=== PATIENT | male | born 1980 | race Hispanic/Latino ===

== ENCOUNTER 2019-12-14 14:23 | Outpatient (CLI) | payer OTHER ==
--- NOTE | 2019-12-14 15:33 | ULT ---
BILATERAL TESTICULAR ULTRASOUND WITH [place] SCALE AND COLOR FLOW AND SPECTRAL DOPPLER IMAGING: Date: 12/14/2019 HISTORY: 39-year-old male with left testicular swelling and pain. FINDINGS: The right testis measures 2.4 x 3.4 x 2.1 cm. The left testis measures 4.6 x 5.3 x 2.7 cm. Multiple h ypoechoic masses are seen within the left testicle. Flow is demonstrated to both testes. Large left-s ided hydrocele. Right epididymis is normal. There is heterogeneity in the left epididymis. IMPRESSION: 1. Left testicular masses suspicious for malignancy. 2. Large left hydrocele. 3. Heterogeneity in the left epididymis is also suspicious for malignancy. Urologic consultation is recommended. CODE T. POS: OFF
== END 2019-12-14 14:24 | disposition home or self-care (01) ==
LOC: BICULT 14:23
PROVIDERS: ATTEND Family Medicine
DX: N50.812 Left testicular pain (principal); N43.3 Hydrocele, unspecified; R93.49 Abnormal radiologic findings on diagnostic imaging of other urinary organs; N50.89 Other specified disorders of the male genital organs
CPT/HCPCS: 76870; 93976

== ENCOUNTER 2020-01-28 07:27 | Outpatient (CLI) | payer OTHER ==
--- NOTE | 2020-01-28 09:55 | CT ---
ABDOMEN AND PELVIC CT SCAN WITH IV CONTRAST: HISTORY: History of inguinal hernia. Left testicular swelling for several months. COMPARISON: Scrotal ultrasound 12/14/2019. FINDINGS: The lung bases are clear. The visualized liver, gallbladder, pancreas, spleen, and adrenal glands ar e unremarkable. No renal calculus or acute obstruction. No CT evidence for acute appendicitis. No large or small bowel obstruction. No evidence for abnormal fluid collection. There are some bila teral small paraaortic lymph nodes without overt adenopathy by size criteria. Bony structures appear intact. There is a huge left-sided hydrocele overall measuring 8 x 15 cm in size. The left-sided t estis appears to be somewhat enlarged and heterogeneous consistent with findings on the prior testicu lar ultrasound. There is no evidence for bowel or fat-containing inguinal hernia. Small fat-contain ing umbilical hernia. IMPRESSION: Huge left-sided hydrocele with somewhat heterogeneous minimally enlarged testis. No evidence for bow el or fat-containing inguinal hernia. Small fat-containing umbilical hernia. Scattered small retrop eritoneal lymph nodes without evidence for overt adenopathy. POS: [facility]
== END 2020-01-28 07:28 | disposition home or self-care (01) ==
LOC: BICCT 07:27
PROVIDERS: ATTEND Urology
DX: K40.90 Unilateral inguinal hernia, without obstruction or gangrene, not specified as recurrent (principal); N43.3 Hydrocele, unspecified; K42.9 Umbilical hernia without obstruction or gangrene; N50.89 Other specified disorders of the male genital organs
CPT/HCPCS: 74177

== ENCOUNTER 2020-03-24 08:36 | Outpatient (CLI) | payer OTHER ==
--- NOTE | 2020-03-24 08:54 | RAD ---
EXAM: Chest PA and lateral: HISTORY: Neoplasm of uncertain behavior. COMPARISON: None FINDINGS: Heart: Normal cardiac silhouette Aorta: Unremarkable Pulmonary vessels: Normal Costophrenic angles: Costophrenic angles are clear. Lungs: No consolidation or masses. Pneumothorax: No pneumothorax Osseous structures: No osseous abnormalities IMPRESSION: No acute cardiopulmonary process.
== END 2020-03-24 08:37 | disposition home or self-care (01) ==
LOC: RAD 08:36
PROVIDERS: ATTEND Urology
DX: D40.12 Neoplasm of uncertain behavior of left testis (principal)
CPT/HCPCS: 71046

== ENCOUNTER 2024-05-24 20:39 | Inpatient (IN) | payer MEDICAID, SELFPAY ==
[2024-05-24] MEDS ORDERED: Sodium Chloride 0.9% 100 ML ONE (22:24)
[2024-05-24] MEDS ORDERED: Cefepime 2 GM VIAL ONE (22:24)
[2024-05-24 22:44] LABS: Hematocrit 18.9 % (42.0-52.0); Hemoglobin 5.6 g/dL (14.0-18.0); Mean Corpuscular HGB CONC 29.6 g/dL (32.0-36.0); Mean Corpuscular Hemoglobin 25.8 pg (27.0-31.0); Mean Corpuscular Volume 87.1 fL (78.0-98.0); Mean Platelet Volume 11.3 fL (7.4-10.4); Platelet Count 27 10x3/uL (130-400); RBC Distribution Width 22.6 % (11.5-14.5); Red Blood Cell (RBC) Count 2.17 mill/uL (4.70-6.10)
[2024-05-24 22:46] LABS: ALT (SGPT) 7 U/L (8-55); AST (SGOT) 11 U/L (5-34); Albumin 2.3 g/dL (3.5-5.0); Alkaline Phosphatase 68 U/L (40-110); Anion Gap 15 mmol/L (10-20); BUN (Urea Nitrogen) 27 mg/dL (8.9-20.6); Bilirubin, Total 0.9 mg/dL (0.2-1.2); Calc. Creatinine Clearance 0 mL/min (70-130); Calcium 8.1 mg/dL (7.8-10.44); Carbon Dioxide 19 mmol/L (22-29); Chloride 103 mmol/L (98-107); Estimated GFR 114; Glucose 109 mg/dL (70-105); Magnesium 2.2 mg/dL (1.6-2.6); Potassium 4.6 mmol/L (3.5-5.1); Protein, Total 6.3 g/dL (6.0-8.3); Sodium 132 mmol/L (136-145)
[2024-05-24 22:48] LABS: Troponin I Less than 0.010 ng/mL (< 0.028)
[2024-05-24] MEDS ORDERED: LevoFLOXacin 750 mg/D5W 150 ml Premix Bag ONE (23:20)
[2024-05-24] MEDS ORDERED: Acetaminophen 325 MG TAB PO PRN (23:58)
[2024-05-24] MEDS ORDERED: Ondansetron PF 4 MG/2 ML Vial IVP PRN (23:58)
[2024-05-24] MEDS ORDERED: Ondansetron ODT 4 MG TAB PO PRN (23:58)
[2024-05-24] MEDS ORDERED: Acetaminophen 650 MG Suppository PR PRN (23:58)
[2024-05-24 23:59] LABS: Band 5 % (5-11); Lymphocytes 16 % (21-51); Monocytes 6 % (0-10); Neutrophil 73 % (42-75); Plasma Cells 0 % (0-0)
[2024-05-25] LABS: Platelet Adequacy Comment Appears Decreased
[2024-05-25 00:43] LABS: Iron 32 ug/dL (65-175); Iron Binding Capacity, Total 181 mcg/dL (261-462)
[2024-05-25 00:54] LABS: INR-International Normal Ratio 1.2; PTT 29.7 sec (22.9-36.1); Prothrombin Time 15.1 sec (12.0-14.7)
[2024-05-25] MEDS: Vancomycin (BATCH) 1.5 GM in Premix 1 BAG IVPB SCH (01:08)
[2024-05-25] MEDS: Furosemide 20 MG (2 mL) VIAL SLOW IVP SCH (01:17)
[2024-05-25 01:18] VITALS: BMI 22.6
[2024-05-25 06:46] LABS: Anion Gap 7 mmol/L (10-20); BUN (Urea Nitrogen) 25 mg/dL (8.9-20.6); Calc. Creatinine Clearance 112 mL/min (70-130); Calcium 7.4 mg/dL (7.8-10.44); Carbon Dioxide 20 mmol/L (22-29); Chloride 108 mmol/L (98-107); Estimated GFR 116; Glucose 91 mg/dL (70-105); Potassium 3.5 mmol/L (3.5-5.1); Sodium 131 mmol/L (136-145)
[2024-05-25 06:51] LABS: Troponin I Less than 0.010 ng/mL (< 0.028)
[2024-05-25 07:54] LABS: Hematocrit 20.2 % (42.0-52.0); Hemoglobin 6.1 g/dL (14.0-18.0); Mean Corpuscular HGB CONC 30.2 g/dL (32.0-36.0); Mean Corpuscular Hemoglobin 27.5 pg (27.0-31.0); Mean Platelet Volume 11.2 fL (7.4-10.4); Platelet Count 26 10x3/uL (130-400); RBC Distribution Width 20.2 % (11.5-14.5); Red Blood Cell (RBC) Count 2.22 mill/uL (4.70-6.10); Reflex for Review?? YES
[2024-05-25 08:24] LABS: Band 15 % (5-11); Lymphocytes 10 % (21-51); Metamyelocyte 1 % (0-0); Monocytes 5 % (0-10); Neutrophil 68 % (42-75); Nucleated RBC (Manual Ct) 6 % (0); Platelet Adequacy Comment Significant Decrease; Polychromasia SLIGHT = 2-3 cells HPF (0-2); Reactive Lymphocytes 2 % (0-10)
[2024-05-25] MEDS: Doxycycline 100 MG in Sodium Chloride 0.9% 100 ML IVPB SCH (08:47)
[2024-05-25] MEDS: predniSONE 20 MG TAB PO SCH (08:47)
[2024-05-25] MEDS: [UNRECOGNIZED DRUG - OTHER] PO SCH (08:48)
[2024-05-25] MEDS: Cefepime 2 GM in Sodium Chloride 0.9% 100 ML IVPB SCH (08:50)
[2024-05-25] MEDS: Sodium Chloride 0.9% 1,000 ML IV SCH (08:54)
[2024-05-25] MEDS: Benzonatate 100 MG CAP PO SCH (08:55)
[2024-05-25] MEDS: Sulfameth/Trimethoprim DS 800-160mg TAB PO SCH (08:55)
[2024-05-25] MEDS ORDERED: Vancomycin (BATCH) 2.5 GM in Premix 1 BAG IVPB SCH (09:00)
[2024-05-25 09:42] LABS: Troponin I Less than 0.010 ng/mL (< 0.028)
[2024-05-25] MEDS ORDERED: Iopamidol-370 76% 500 ML MDV (1 ML CHARGE) ONE (10:09)
[2024-05-25] MEDS: Vancomycin (BATCH) 1.25 GM in Premix 1 BAG IVPB SCH (10:18)
[2024-05-25 15:50] LABS: Bilirubin Negative (Negative); Blood, Urine Negative (Negative); Clarity Clear (Clear); Glucose, Urine (Dipstick) Normal (Negative); Ketone, Urine Negative (Negative); Leukocyte Negative Leu/uL (Negative); Nitrite Negative (Negative); Protein, Urine (Dipstick) Negative (Neg-Trace); Specific Gravity, Urine 1.021 (1.002-1.036); Urobilinogen Normal mg/dL (Less than 2); pH, Urine 6.5 (5.0-9.0)
[2024-05-25 16:01] LABS: Bacteria/HPF Rare-Few HPF (None Seen); CAUTI Indications for Culture Fever or rigors; RBC/HPF 0-3 HPF (0-3); Squamous Epithelial 0-3 HPF (0-3); WBC/HPF 0-3 HPF (0-3)
[2024-05-25 16:02] LABS: Urine Culture Reflex No No
[2024-05-25 16:14] LABS: Hematocrit 26.9 % (42.0-52.0); Hemoglobin 8.7 g/dL (14.0-18.0); Platelet Count 35 10x3/uL (130-400)
[2024-05-25] MEDS: cefTRIAXone\\ROCEPHIN 2 GM in Sodium Chloride 0.9% 100 ML IVPB SCH (16:24)
[2024-05-25 17:34] LABS: Influenza A by NAA Not Detected (NotDetected); Influenza B by NAA Not Detected (NotDetected); RSV by NAA Not Detected (NotDetected); SARS-CoV-2 NAA Rapid Test Not Detected (NotDetected)
[2024-05-25 18:01] LABS: Legionella Urinary Ag Negative (Negative); Strep pneumo Urine Ag NEGATIVE (NEGATIVE)
[2024-05-26 05:54] LABS: Hematocrit 25.7 % (42.0-52.0); Hemoglobin 7.8 g/dL (14.0-18.0); Mean Corpuscular HGB CONC 30.4 g/dL (32.0-36.0); Mean Corpuscular Hemoglobin 27.6 pg (27.0-31.0); Mean Corpuscular Volume 90.8 fL (78.0-98.0); Mean Platelet Volume 12.1 fL (7.4-10.4); Platelet Count 35 10x3/uL (130-400); RBC Distribution Width 19.9 % (11.5-14.5); Red Blood Cell (RBC) Count 2.83 mill/uL (4.70-6.10)
[2024-05-26 05:58] LABS: Anion Gap 10 mmol/L (10-20); BUN (Urea Nitrogen) 18 mg/dL (8.9-20.6); Calc. Creatinine Clearance 116 mL/min (70-130); Calcium 7.6 mg/dL (7.8-10.44); Carbon Dioxide 18 mmol/L (22-29); Chloride 111 mmol/L (98-107); Estimated GFR 117; Glucose 87 mg/dL (70-105); Potassium 4.1 mmol/L (3.5-5.1); Sodium 135 mmol/L (136-145)
[2024-05-26 06:37] LABS: Anisocytosis SLIGHT = 6-15 cells HPF (0-5); Band 8 % (5-11); Eosinophils 1 % (0-10); Hypochromia SLIGHT = 6-15 cells HPF (0-5); Large Platelets 0.9 % (0-5); Lymphocytes 1 % (21-51); Monocytes 6 % (0-10); Neutrophil 85 % (42-75); Nucleated RBC (Manual Ct) 1 % (0); Platelet Adequacy Comment Platelets Decreased; Polychromasia SLIGHT = 2-3 cells HPF (0-2); Smudge Cells 29.9 %
[2024-05-27 05:53] LABS: Hemoglobin 7.8 g/dL (14.0-18.0); Mean Corpuscular HGB CONC 31.2 g/dL (32.0-36.0); Mean Corpuscular Hemoglobin 28.2 pg (27.0-31.0); Mean Corpuscular Volume 90.3 fL (78.0-98.0); Mean Platelet Volume 10.8 fL (7.4-10.4); Platelet Count 37 10x3/uL (130-400); RBC Distribution Width 20.6 % (11.5-14.5); Red Blood Cell (RBC) Count 2.77 mill/uL (4.70-6.10)
[2024-05-27 09:23] LABS: Band 19 % (5-11); Eosinophils 3 % (0-10); Large Platelets 1.9 % (0-5); Lymphocytes 2 % (21-51); Metamyelocyte 1 % (0-0); Monocytes 1 % (0-10); Neutrophil 71 % (42-75); Nucleated RBC (Manual Ct) 3 % (0); Platelet Adequacy Comment Significant Decrease; Polychromasia SLIGHT = 2-3 cells HPF (0-2); Reactive Lymphocytes 1 % (0-10)
[2024-05-27] MEDS: Pantoprazole DR 40 MG TAB PO SCH (09:23)
[2024-05-27 14:59] LABS: Campy jejuni + coli by PCR Negative (Negative); STEC Shiga Toxin 1+2 Negative (Negative); Salmonella spp. by PCR Negative (Negative); Shigella spp + EIEC by PCR Negative (Negative)
[2024-05-27 21:13] LABS: LOG10 HIV-1 RNA 1.845 (.)
[2024-05-27 21:13] LABS: L.pneumophilia Abs Non Reactive (Non Reactive)
[2024-05-27 21:37] LABS: Mycoplasma pneumoniae IgG AB 262 U/mL (0-99); Mycoplasma pneumoniae IgM AB Less than 770 U/mL (0-769)
[2024-05-28 00:37] LABS: Adenovirus F 40-41 Not Detected (Not Detected); Astrovirus Not Detected (Not Detected); C. difficile toxin A+B DETECTED (Not Detected); Campylobacter by PCR Not Detected (Not Detected); Cryptosporidium Not Detected (Not Detected); Cyclospora cayetanensis Not Detected (Not Detected); Entamoeba histolytica Not Detected (Not Detected); Enteroaggregative E. coli Not Detected (Not Detected); Enteropathogenic E. coli Not Detected (Not Detected); Enterotoxigenic E. coli Not Detected (Not Detected); Giardia lamblia Not Detected (Not Detected); Norovirus GI-GII Not Detected (Not Detected); Plesiomonas shigelloides Not Detected (Not Detected); Rotavirus A Not Detected (Not Detected); Salmonella Not Detected (Not Detected); Sapovirus Not Detected (Not Detected); Shiga-toxin-producing E coli Not Detected (Not Detected); Shigella/Enteroinvasive E coli Not Detected (Not Detected); Vibrio Not Detected (Not Detected); Vibrio cholerae Not Detected (Not Detected); Yersinia enterocolitica Not Detected (Not Detected)
[2024-05-28 06:05] LABS: Hematocrit 25.6 % (42.0-52.0); Hemoglobin 7.8 g/dL (14.0-18.0); Mean Corpuscular HGB CONC 30.5 g/dL (32.0-36.0); Mean Corpuscular Hemoglobin 27.1 pg (27.0-31.0); Mean Corpuscular Volume 88.9 fL (78.0-98.0); Mean Platelet Volume 10.2 fL (7.4-10.4); Platelet Count 47 10x3/uL (130-400); RBC Distribution Width 21.2 % (11.5-14.5); Red Blood Cell (RBC) Count 2.88 mill/uL (4.70-6.10)
[2024-05-28 06:32] LABS: Band 10 % (5-11); Hypochromia SLIGHT = 6-15 cells HPF (0-5); Large Platelets 1.9 % (0-5); Lymphocytes 2 % (21-51); Monocytes 3 % (0-10); Neutrophil 84 % (42-75); Nucleated RBC (Manual Ct) 4 % (0); Platelet Adequacy Comment Platelets Decreased; Polychromasia MODERATE = 3-4 cells HPF (0-2)
[2024-05-28] MEDS: Saccharomyces boulardii 250 MG CAP PO SCH (09:25)
[2024-05-28 12:30] LABS: Chlam.trachomatis by PCR,Urine Not Detected (NotDetected); GC N.gonorrhoeae PCR,UrineVOID Not Detected (NotDetected)
[2024-05-28] MEDS: Vancomycin HCl 125 MG Capsule PO SCH (13:08)
[2024-05-28 13:15] LABS: Bartonella henselae IgG Negative titer (Neg:<1:320); Bartonella henselae IgM Negative titer (Neg:<1:100); Bartonella quintana IgG Negative titer (Neg:<1:320); Bartonella quintana IgM Negative titer (Neg:<1:100)
[2024-05-28] MEDS: Lidocaine 1% w/Epinephrine 1:100K 20 ML VIAL IJ SCH (13:44)
[2024-05-28 14:06] LABS: Reference Lab Name LABCORP
[2024-05-28] MEDS: Triple Antibiotic Oint 1 GM Packet TOP SCH (16:37)
[2024-05-28] MEDS: Lidocaine 1% w/Epinephrine 1:100K 20 ML VIAL FS SCH (16:37)
[2024-05-28 20:09] LABS: %CD4 (Helper/Inducer) 6.6 % (30.8-58.5); Absolute CD4 33 /uL (359-1519); Lymphocytes/Gated Cell Count 0.5 x10E3/uL (0.7-3.1); Total Lymphocyte 13 % (Not Estab.); WBC Total Count 4.3 x10E3/uL (3.4-10.8); nRBC 3 % (0 - 0)
[2024-05-29 05:38] LABS: Mean Corpuscular HGB CONC 30.8 g/dL (32.0-36.0); Mean Corpuscular Hemoglobin 28.2 pg (27.0-31.0); Mean Corpuscular Volume 91.5 fL (78.0-98.0); Platelet Count 60 10x3/uL (130-400); RBC Distribution Width 21.5 % (11.5-14.5); Red Blood Cell (RBC) Count 2.84 mill/uL (4.70-6.10)
[2024-05-29 06:05] LABS: Anisocytosis SLIGHT = 6-15 cells HPF (0-5); Band 12 % (5-11); Eosinophils 1 % (0-10); Hypochromia SLIGHT = 6-15 cells HPF (0-5); Lymphocytes 3 % (21-51); Monocytes 5 % (0-10); Myelocyte 3 % (0-0); Neutrophil 76 % (42-75); Nucleated RBC (Manual Ct) 1 % (0); Ovalocytes SLIGHT = 2-5 cells HPF (0-1); Platelet Adequacy Comment Platelets Decreased; Polychromasia MODERATE = 3-4 cells HPF (0-2); Smudge Cells 28.7 %; Target Cells SLIGHT = 2-5 cells HPF (0-1); Tear Drops SLIGHT = 2-5 cells HPF (0-1); Toxic Granulation MODERATE
[2024-05-29] MEDS: Furosemide 40 MG (4 mL) VIAL SLOW IVP SCH (09:33)
[2024-05-29] MEDS: Sodium Bicarbonate Tab 325 MG TAB PO SCH (09:33)
[2024-05-30 05:03] LABS: Hematocrit 26.3 % (42.0-52.0); Hemoglobin 8.1 g/dL (14.0-18.0); Mean Corpuscular HGB CONC 30.8 g/dL (32.0-36.0); Mean Corpuscular Hemoglobin 27.8 pg (27.0-31.0); Mean Corpuscular Volume 90.4 fL (78.0-98.0); Mean Platelet Volume 9.9 fL (7.4-10.4); Platelet Count 75 10x3/uL (130-400); Red Blood Cell (RBC) Count 2.91 mill/uL (4.70-6.10)
[2024-05-30 05:16] LABS: Anion Gap 11 mmol/L (10-20); BUN (Urea Nitrogen) 17 mg/dL (8.9-20.6); Calc. Creatinine Clearance 125 mL/min (70-130); Carbon Dioxide 23 mmol/L (22-29); Chloride 105 mmol/L (98-107); Estimated GFR 120; Glucose 100 mg/dL (70-105); Sodium 135 mmol/L (136-145)
[2024-05-30 05:26] LABS: Anisocytosis MODERATE=16-30 cells HPF (0-5); Band 20 % (5-11); Elliptocytes SLIGHT = 2-5 cells HPF (0-1); Eosinophils 1 % (0-10); Lymphocytes 8 % (21-51); Metamyelocyte 2 % (0-0); Monocytes 12 % (0-10); Myelocyte 2 % (0-0); Neutrophil 54 % (42-75); Nucleated RBC (Manual Ct) 1 % (0); Platelet Adequacy Comment Platelets Decreased; Polychromasia MODERATE = 3-4 cells HPF (0-2); Promyelocytes 1 % (0-0); Target Cells SLIGHT = 2-5 cells HPF (0-1); Tear Drops MODERATE= 6-15 cells HPF (0-1); Toxic Granulation SLIGHT
[2024-05-30 09:21] VITALS: BMI 22.6
[2024-05-30] MEDS: Guaifenesin DM 100-10/5 ML UDCUP PO PRN (17:34)
[2024-05-31 05:41] LABS: Hematocrit 24.9 % (42.0-52.0); Hemoglobin 7.5 g/dL (14.0-18.0); Mean Corpuscular HGB CONC 30.1 g/dL (32.0-36.0); Mean Corpuscular Hemoglobin 27.2 pg (27.0-31.0); Mean Corpuscular Volume 90.2 fL (78.0-98.0); Platelet Count 74 10x3/uL (130-400); RBC Distribution Width 22.4 % (11.5-14.5); Red Blood Cell (RBC) Count 2.76 mill/uL (4.70-6.10)
[2024-05-31 05:55] LABS: Chloride 106 mmol/L (98-107); Potassium 4.5 mmol/L (3.5-5.1); Sodium 134 mmol/L (136-145)
[2024-05-31 05:56] LABS: Anion Gap 11 mmol/L (10-20); BUN (Urea Nitrogen) 19 mg/dL (8.9-20.6); Calc. Creatinine Clearance 127 mL/min (70-130); Calcium 7.6 mg/dL (7.8-10.44); Carbon Dioxide 22 mmol/L (22-29); Estimated GFR 120; Glucose 91 mg/dL (70-105)
[2024-05-31 06:02] LABS: Anisocytosis SLIGHT = 6-15 cells HPF (0-5); Band 17 % (5-11); Eosinophils 1 % (0-10); Lymphocytes 8 % (21-51); Metamyelocyte 2 % (0-0); Monocytes 7 % (0-10); Myelocyte 1 % (0-0); Neutrophil 63 % (42-75); Nucleated RBC (Manual Ct) 2 % (0); Ovalocytes SLIGHT = 2-5 cells HPF (0-1); Platelet Adequacy Comment Platelets Decreased; Polychromasia SLIGHT = 2-3 cells HPF (0-2); Target Cells SLIGHT = 2-5 cells HPF (0-1); Tear Drops SLIGHT = 2-5 cells HPF (0-1)
[2024-05-31] MEDS: Calcium Carbonate 600 MG + Vit D TAB PO SCH (08:31)
[2024-06-01 07:00] LABS: Hematocrit 25.1 % (42.0-52.0); Hemoglobin 7.5 g/dL (14.0-18.0); Mean Corpuscular HGB CONC 29.9 g/dL (32.0-36.0); Mean Corpuscular Volume 93.7 fL (78.0-98.0); Mean Platelet Volume 10.1 fL (7.4-10.4); Platelet Count 88 10x3/uL (130-400); RBC Distribution Width 22.5 % (11.5-14.5); Red Blood Cell (RBC) Count 2.68 mill/uL (4.70-6.10)
[2024-06-01 07:13] LABS: Anion Gap 9 mmol/L (10-20); BUN (Urea Nitrogen) 14 mg/dL (8.9-20.6); Calc. Creatinine Clearance 129 mL/min (70-130); Calcium 7.7 mg/dL (7.8-10.44); Carbon Dioxide 25 mmol/L (22-29); Chloride 104 mmol/L (98-107); Estimated GFR 121; Glucose 86 mg/dL (70-105); Potassium 3.8 mmol/L (3.5-5.1); Sodium 134 mmol/L (136-145)
[2024-06-01 07:56] LABS: Band 29 % (5-11); Eosinophils 2 % (0-10); Large Platelets 2.5 % (0-5); Lymphocytes 1 % (21-51); Metamyelocyte 1 % (0-0); Microcytosis SLIGHT = 6-15 cells HPF (0-5); Monocytes 7 % (0-10); Neutrophil 61 % (42-75); Platelet Adequacy Comment Significant Decrease; Stomatocytes SLIGHT = 2-5 cells HPF (0-1)
[2024-06-02] MEDS ORDERED: Iopamidol-370 76% 500 ML MDV (1 ML CHARGE) ONE (13:36)
[2024-06-02] MEDS: Folic Acid 1 MG TAB PO SCH (21:29)
[2024-06-02] MEDS: Cyanocobalamin (Vitamin B-12) 1,000 MCG TAB PO SCH (21:30)
[2024-06-02] MEDS: Cholecalciferol 1,000 UNITS (25 MCG) TAB PO SCH (21:30)
[2024-06-02] MEDS: Thiamine 100 MG TAB PO SCH (21:30)
[2024-06-02] MEDS: Multivit, Therapeutic 1 TAB PO SCH (21:30)
[2024-06-04 06:50] LABS: Hematocrit 28.7 % (42.0-52.0); Hemoglobin 8.5 g/dL (14.0-18.0); Mean Corpuscular HGB CONC 29.6 g/dL (32.0-36.0); Mean Corpuscular Hemoglobin 28.1 pg (27.0-31.0); Mean Platelet Volume 9.4 fL (7.4-10.4); Platelet Count 135 10x3/uL (130-400); RBC Distribution Width 24.2 % (11.5-14.5); Red Blood Cell (RBC) Count 3.02 mill/uL (4.70-6.10)
[2024-06-04 07:13] LABS: Anion Gap 10 mmol/L (10-20); BUN (Urea Nitrogen) 15 mg/dL (8.9-20.6); Calc. Creatinine Clearance 105 mL/min (70-130); Carbon Dioxide 25 mmol/L (22-29); Chloride 105 mmol/L (98-107); Estimated GFR 113; Glucose 85 mg/dL (70-105); Potassium 4.2 mmol/L (3.5-5.1); Sodium 136 mmol/L (136-145)
[2024-06-04 08:46] LABS: Band 20 % (5-11); Large Platelets 2.9 % (0-5); Lymphocytes 14 % (21-51); Monocytes 9 % (0-10); Neutrophil 58 % (42-75); Nucleated RBC (Manual Ct) 1 % (0); Platelet Adequacy Comment Platelets Normal; Polychromasia MODERATE = 3-4 cells HPF (0-2); Stomatocytes SLIGHT = 2-5 cells HPF (0-1)
[2024-06-04] MEDS: Benzonatate 100 MG CAP PO PRN (23:16)
[2024-06-05 15:28] VITALS: BP 99/63; TEMP 99.1
== END 2024-06-05 18:19 | disposition home or self-care (01) | DRG 974 ==
LOC: ERS 20:39 → 2NO 23:29 → SJJU 05-27 18:36
PROVIDERS: ADMIT Student in an Organized Health Care Education/Training Program; ATTEND Internal Medicine
PROC: 30233N1 Transfusion of Nonautologous Red Blood Cells into Peripheral Vein, Percutaneous Approach (ICD-10-PCS; 2024-05-25)
PROC: 3E03329 Introduction of Other Anti-infective into Peripheral Vein, Percutaneous Approach (ICD-10-PCS; 2024-05-25)
PROC: 0HB6XZX Excision of Back Skin, External Approach, Diagnostic (ICD-10-PCS; principal; 2024-05-28)
DX: A41.59 Other Gram-negative sepsis (principal); J96.01 Acute respiratory failure with hypoxia; B20 Human immunodeficiency virus [HIV] disease; A04.72 Enterocolitis due to Clostridium difficile, not specified as recurrent; E87.20 Acidosis, unspecified; E87.1 Hypo-osmolality and hyponatremia; D62 Acute posthemorrhagic anemia; J15.69 Pneumonia due to other Gram-negative bacteria; C46.9 Kaposi's sarcoma, unspecified; Z79.899 Other long term (current) drug therapy; D69.6 Thrombocytopenia, unspecified; R15.9 Full incontinence of feces; A60.9 Anogenital herpesviral infection, unspecified; A53.9 Syphilis, unspecified
CPT/HCPCS: 0241U; 36415; 36416; 36430; 71045; 71260; 74177; 80048; 80053; 81001; 82274; 82728; 83540; 83550; 83605; 83615; 83630; 83735; 83880; 84484; 85025; 85060; 85384; 86141; 86361; 86611; 86713; 86850; 86900; 86901; 87015; 87040; 87081; 87206; 87324; 87328; 87329; 87337; 87449; 87491; 87505; 87507; 87536; 87591; 87899; 88305; 88341; 88342; 93005; 93306; 96365; 96367; J0692; J0696; J1940; J1956; J3370; J7030; J7512; P9016; Q9967